=== PATIENT | male | born 1955 | race Caucasian/White ===

== ENCOUNTER 2020-06-12 21:29 | Inpatient (IN) | payer OTHER ==
[~2020-06-12] VITALS: Ht 185.4 cm; Wt 103.5 kg
[2020-06-12 21:30] VITALS: BP 185/108
[2020-06-12 22:12] LABS: ABSOLUTE NEUTROPHILS 4.8 thou/uL (1.4-8.2); BASOPHILS 0.4 % (0.0-2.0); EOSINOPHILS 3.8 % (0.0-3.0); HEMATOCRIT 40.1 % (42.0-52.0); HEMOGLOBIN 13.9 gm/dL (14.0-18.0); LYMPHOCYTES 29.9 % (24.0-44.0); MCH 31.1 pg (26.0-34.0); MCHC 34.6 g/dL (28.0-37.0); MCV 89.7 fL (80.0-100.0); MONOCYTES 6.2 % (1.0-8.0); PLATELET COUNT 191 thou/uL (150-400); POLYS 59.7 % (36.0-66.0); RBC 4.47 mil/uL (4.50-6.00); RDW 14.6 % (10.5-14.5)
[2020-06-12 22:27] LABS: CALCIUM 8.6 mg/dL (8.5-10.1); CREATININE 1.5 mg/dL (0.7-1.3); MAGNESIUM 1.9 mg/dL (1.8-2.4)
[2020-06-12 22:32] LABS: POTASSIUM 2.8 mmol/L (3.5-5.1)
[2020-06-12 23:08] LABS: AMP/METHAMP Negative (Negative); BARBITURATES Negative (Negative); BENZODIAZEPINES Negative (Negative); COCAINE Negative (Negative); METHADONE Negative (Negative); OPIATES POSITIVE (Negative); PCP Negative (Negative)
--- NOTE | 2020-06-13 00:52 | NUR ---
PHYSICIAN LEFT BEDSIDE. THE PATIENT STATES THAT HE, IN FACT, WAS TRYING TO HARM HIMSELF AND TOOK 6 PERCOCET AND AN UNKNOWN AMOUNT OF LORAZEPAM "BECAUSE HE WAS HAVING A BAD DAY"
--- NOTE | 2020-06-13 00:53 | NUR ---
HAND LACER NOTIFIED OF NEED FOR 1:1.
[2020-06-13] MEDS ORDERED: OXYCODONE IR PO (04:14)
[2020-06-13] MEDS ORDERED: LIPITOR10 MG PO (04:14)
[2020-06-13] MEDS ORDERED: LEVO-T50 MCG PO ×2 (04:15)
[2020-06-13] MEDS ORDERED: LISINOPRIL2.5 MG PO (04:16)
[2020-06-13] MEDS ORDERED: TRADJENTA5 MG (04:16)
[2020-06-13] MEDS ORDERED: MELOXICAM15 MG PO (04:19)
[2020-06-13] MEDS ORDERED: SPIRIVA INH (04:19)
[2020-06-13] MEDS ORDERED: BRINTELLIX5 MG PO (04:19)
[2020-06-13] MEDS ORDERED: ADULT ASPIRIN R81 MG PO (04:19)
[2020-06-13 04:23] LABS: CALCIUM 8.5 mg/dL (8.5-10.1); CREATININE 1.3 mg/dL (0.7-1.3); POTASSIUM 3.1 mmol/L (3.5-5.1)
--- NOTE | 2020-06-13 04:47 | NUR ---
[facility] CONTACTED FOR ASSESSMENT ON PATIENT. SPOKE WITH ELIZA IVEY AND THEY WILL BE DOWN SHORTLY TO ASSESS PATIENT FOR APPROPRIATE ADMISSION CRITERIA.
--- NOTE | 2020-06-13 05:17 | NUR ---
[facility] NURSE STATES AFTER ASSESSMENT THAT PATIENT SHOULD QUALIFY TO BE ADMITTED TO THEIR UNIT. ELIZA IVEY TO NOTIFY PHYSICIAN SECTION MAINTAINER FOR OFFICIAL ORDER AND PATIENT TO ADMIT WELL WAITING ON COVID SWAB RESULTS
[2020-06-13 11:16] VITALS: BP 154/106
[2020-06-13 12:33] VITALS: BP 168/84
--- NOTE | 2020-06-13 16:29 | NUR ---
1600 NEW ADMIT FROM ER FOR OVERDOSE ON OXYCODONE AND LORAZAPAN UNKNOWN AMOUNT OF PILLS. PATIENT STILL SEDATED FROM OVERDOSE, PATIENT STATED TO ME THAT HE HAS HAD A BAD LIFE. PATIENT HAS HISTORY OF PAST SUICIDE ATTEMPT IN PAST, WE DID NOT HAVE PERSON FULL MEDICAL RECORDS UPON ADMISSION. PATIENT HAS HISTORY OF HYPERTENSION AND DIABETES AND HX OF ETOH USE. PATIENT STATES HE IS SOMETIMES FEELS HOPELESS AND DEPRESSED. PATIENT DID GET UP TO EAT LUNCH AND DINNER. I ALLOWED PATIENT TO GO TO ROOM TO SLEEP DUE TO SEDATION, PATIENT DENIES HI/SI/AH/VH AT PRESENT. PATIENT STATES HE WANTED TO HAVE HIS MIND SOMEWHERE ELSE THAT IS WHY HE TOOK THE PILLS. PATIENT HAS NO SUPPORT SYSTEM AND DOES NOT KNOW HOW TO DEAL WITH STRESS. PATIENTS ABDOMEN ROUND BOWEL SOUNDS PRESENT; LUNGS CLEAR. PATIENT IS A LOW FALL RISK DUE TO OVERDOSE PATIENT IS AMBULATORY BUT DUE TO SEDATION I USED THE WC. PATIENT HAD A CALLOUS ON LEFT BIG TOE AND SCRAPE ON 2ND TOE. WOUND CARE DR CAME AND CUT THE CALLOUS DOWN AND WILL PUT ORDERS IN ON HOW TO TAKE CARE OF CALLOUS. PATIENT IS ORIENTED TO PLACE AND SELF COULD NOT REMEMBER MONTH OR YEAR. PATIENT IS COOPERATIVE CALM WILL CONTINUE TO MONITOR PATIENT FOR SAFETY AND BEHAVIORS.
[2020-06-13 20:26] VITALS: BP 141/90
--- NOTE | 2020-06-14 05:44 | NUR ---
06-13-20 CARE TRANSFERED 1914 OBSERVED SITTING IN DAY ROOM. 1944 PT AAOX3, VSS, RR EVEN AND NONLABORED ON RA. PT PRESENTS DROWSY AND CONFUSION. PT REPORTS HE HAS HAD A DIFFICULT LIFE, PT REPORTS PAIN IN RIGHT KNEE AT 6 ON 0-10 SCALE. PT DENIES SI/HI AT THIS TIME, BUT REPORTS THIS WAS THE SECOND TIME HE HAS ATTEMPTED SUICIDE. DURING MEDICATION ADMIN PT HAD NO DIFFICULTIES. ZERO S/S OF ACUTE EMOTIONAL OR MEDICAL DISTRESS, WILL CONTINUE TO MONITOR PER [facility] PROTOCOL.
[2020-06-14 06:24] LABS: HEMATOCRIT 41.5 % (42.0-52.0); HEMOGLOBIN 14.1 gm/dL (14.0-18.0); MCH 30.8 pg (26.0-34.0); MCHC 33.9 g/dL (28.0-37.0); MCV 90.8 fL (80.0-100.0); RBC 4.57 mil/uL (4.50-6.00); RDW 14.8 % (10.5-14.5); WBC 8.5 thou/uL (4.0-11.0)
[2020-06-14 06:46] LABS: CALCIUM 8.7 mg/dL (8.5-10.1); CREATININE 1.2 mg/dL (0.7-1.3); MAGNESIUM 2.1 mg/dL (1.8-2.4)
[2020-06-14 06:58] LABS: POTASSIUM 2.9 mmol/L (3.5-5.1)
[2020-06-14 07:45] LABS: TSH 6.743 uIU/mL (0.358-3.740)
[2020-06-14 10:44] VITALS: BP 188/96
--- NOTE | 2020-06-14 12:09 | NUR ---
1200 RESUMMED CARE FROM OVERNIGHT SHIFT THIS AM, PATIENT IN ROOM I EXCHANGED WC FOR A WALKER. PATIENT FELT HE NEEDED TO START WALKING AROUND, PATIENT LESS SEDATED THIS AM. PATIENTS ABOMEN SOFT ROUND BOWEL SOUNDS PRESENT LUNGS CLEAR. PATIENT CALLOUS ON LEFT BIG TOE LOOKING BETTER, PATIENT DENIES SI/HI/AH/VH AT PRESENT. PATIENT TOLD ME HE SMOKES 2 PACKS OF CIGARETTES A DAY, A NICOTINE PATCH OREDERED FOR PATIENT. PATIENT HAD A POTASSIUM OF 2.[address] ROSADO AND HE ORDERED 40 MCG OF POTASSIUM FOR PATIENT. WILL CONTINUE TO MONITOR PATIENT FOR BEHAVIORS AND SAFETY.
--- NOTE | 2020-06-14 15:12 | NUR ---
MARLEN and Dr. Alvarez met with patient to complete assessment. Patient's brother Jeramie was called and provided some hx. Patient's mother in January. He was her primary caregiver. Recently a tree that had been in their yard for 35 yrs was cut down. Patient wrote a letter about his feelings about the tree being gone. Jeramie reports pt took the tree being removed really hard. Patient was found unresponsive in his car. He reports he does not remember what happened. The medical record reflects patient took Oxycodone and Lorazapem in an attempt to "harm himself" due to suicidal ideation. Patient denies hx of suicide attempt. The medical reflects he has attempted in the past. Dr. Alvarez discussed safety planning with Jeramie in terms of getting weapons and/or stock piled medications out of the home.
[2020-06-14 20:37] VITALS: BP 164/94
[2020-06-14 23:22] VITALS: BP 164/94
--- NOTE | 2020-06-15 02:40 | NUR ---
Assumed care of patient this pm shift. Patient sitting in the mileu during assessment. Patients affect is flat. Patient states that he has pain in his back and knees. Patient given 2 tylenol for pain. Patient denies hi/si. Patient is not a falls risk and ambulates without assistance. Patient is continent of bowel and bladder. Patient is medication adherent and takes medications whole with thin fluids. Patients assessment shows no signs of acute distress. Patient is alert and oriented x4. Patient is calm and cooperative and does not display any negative behaviors. We will continue to monitor per hospital policy.
[2020-06-15 07:32] VITALS: BP 166/106
--- NOTE | 2020-06-15 08:10 | EKG ---
[facility] [place] [address] ELECTROCARDIOGRAM REPORT Name: WINDY ANDERSON Room #: 522B-B ADM IN M.R.#: [id number] Admission: 06/13/20 Attend Phys: Bravo Alvarez DO Discharge: Date of : 59 Report #: [id number] THIS REPORT FOR: cc: ABEBA - No family physician/PCP FAM - No family physician/PCP Michael Berman MD [facility] ~ THIS REPORT FOR: //name// [facility] ED Test Date: 2020-06-12 Test Time: 21:36:49 Pat Name: WINDY ANDERSON Department: Room: 522B Gender: M Social Studies Teacher: ROSA : 1955 Requested By: Victoriano Jensen Order Number: [id number] MD: Michael Berman Measurements Intervals [place] Rate: 97 P: -6 SD: 126 QRS: -52 QRSD: 124 T: 68 QT: 412 QTc: 524 Interpretive Statements Sinus tachycardia Multiple ventricular premature complexes IVCD, consider atypical RBBB Inferolateral infarct, old Baseline wander in lead(s) V2 No previous ECG available for comparison Electronically Signed On 06-15-2020 8:10:00 CDT by Michael Berman [email or web address] <ELECTRONICALLY SIGNED> By: Michael Berman MD, FAC 06/15/20 0810 35 35 Michael Berman MD, FAC /EPI
--- NOTE | 2020-06-15 08:25 | NUR ---
PT SITTING AT A TABLE EATING BREAKFAST. PT STATED HE IS DOING BETTER AND IS READY TO GO HOME. PT STATED HE HAS A POSITIVE ATTITUDE. PT UP WITH WALKER. PT STATED PAIN TO RT KNEE, LOWER BACK AND NECK IS A 6. PT REFUSED ANY MEDICATION FOR PAIN CONTROL AT THIS TIME. PT LUNGS CLEAR, POSITIVE BOWEL SOUNDS.
[2020-06-15 08:30] VITALS: BP 166/106
--- NOTE | 2020-06-15 11:35 | NUR ---
MARLEN and Dr. Alvarez contacted pt's brother Cam Verde at [phone]. Cam read to and MARLEN the alleged suicidal note pt left. There was no mention of in the letter; it was purely about the tree. Cam said that pt was discovered by the [employer] shop employee who was gonna ask pt to roll his window up. They found pt passed out in his car. Cam explained that pt has not drank alcohol in years; it was coincidental that he was in the vicinity of a bar. In Cam's opinion pt was not attempting suicide. He simply took too much of his medicine. Dr. Alvarez talked to Cam about pt needing to stay with one of his brothers after d/c. Cam said that he will be out of town for 2 months. He gave Jeramie's number of [phone]. In order for pt to d/c tomorrow, he will need to have a safe place to stay. He would like pt to stay with family for the rest of the week. MARLEN team will continue to follow pt during his stay on this unit.
--- NOTE | 2020-06-15 16:23 | NUR ---
PT LAYING IN BED. CLEANED CALLOUS TO LEFT FOOT ON PLANTER SIDE. CLEANED BETADINE SWABS AND APPLIED MEPILEX BOARDER DRESSING. PT STATED HE IS GOING HOME TOMMORROW.
[2020-06-15 19:55] VITALS: BP 179/112
[2020-06-16 05:58] LABS: HEMATOCRIT 40.3 % (42.0-52.0); MCH 31.4 pg (26.0-34.0); MCHC 34.8 g/dL (28.0-37.0); MCV 90.1 fL (80.0-100.0); RBC 4.48 mil/uL (4.50-6.00); RDW 14.5 % (10.5-14.5); WBC 7.6 thou/uL (4.0-11.0)
[2020-06-16 06:29] LABS: CALCIUM 8.7 mg/dL (8.5-10.1); MAGNESIUM 2.1 mg/dL (1.8-2.4); POTASSIUM 3.1 mmol/L (3.5-5.1)
[2020-06-16 07:54] VITALS: BP 163/102
--- NOTE | 2020-06-16 08:32 | NUR ---
PT SITTING OUT IN DINING ROOM. PT UP WITH WALKER. PT STATED HE HAS PAIN TO NECK AND LOWER BACK OF 6 ON 1-10 SCALE. PT REFUSED ANY TYLENOL. PT STATED HE IS GOING HOME TODAY. PT TOOK MEDS WITHOUT ANY ISSUES. PT HAS DRESSING TO LEFT FOOT THAT IS INTACT. PT HAS SORE ON TOP OF LEFT SECOND TOE. NO DRAINAGE NOTED.
[2020-06-16 09:00] VITALS: BP 163/102
[2020-06-16] MEDS ORDERED: LISINOPRIL40 MG PO (12:46)
[2020-06-16] MEDS ORDERED: TRADJENTA5 MG PO (12:47)
[2020-06-16] MEDS ORDERED: SYNTHROID175 MCG PO (12:48)
[2020-06-16] MEDS ORDERED: GENTAMICIN SULF15 GM TOP (12:49)
--- NOTE | 2020-06-16 14:23 | NUR ---
MARLEN contacted [facility] several times in an attempt to schedule and intake appointment for out Pt services. MARLEN was unable to get an appointment informed Pt's case briefer would need to make a referral for the Pt to get an appointment for outpt services. MARLEN then reached out to Susie Gutierrez case briefer [phone], and left a message for a call back. @ 13:27 MARLEN recieved a phone [facility], case briefer supervisor real estate office. Yanira stated a referral would be made for the Pt to begin therapy. Yanira also stated that the Pt's case manger will contact the Pt this week concerning services. Yanira also left a phone number for Susie [phone] for Pt to contact.
--- NOTE | 2020-06-16 14:31 | NUR ---
CHANGED DRESSING TO LEFT FOOT, APPLIED GENTAMYCIN CREAM TO LEFT PLANTER AND TOP OF LEFT SECOND TOE.
--- NOTE | 2020-06-16 15:01 | NUR ---
@1130 SW and Pt contacted [facility] to schedule a PCP appointment for 06/18/2020 @1020. Pt also has and appointment 06/17/[address] Toure for pain mangement. SW provided Pt with a SW discharge summary that included appointment information.
--- NOTE | 2020-06-16 15:34 | NUR ---
PT GETTING READY TO DISCHARGED. ADM KDUR 40MEQ X1 PO PER ORDER. GAVE PT GRAMHN CRACKERS WITH MED. PT VERBALY UNDERSTOOD D/C ORDERS.
--- NOTE | 2020-06-16 15:50 | NUR ---
TRANSPORTED PT VIA W/C TO SECURITY TO GET BELONGINGS, PT HAS HIS CANE.
--- NOTE | 2020-06-16 23:43 | H ---
[facility] [address] [place] [address] HISTORY AND PHYSICAL Name: WINDY ANDERSON Room #: 522B-B DIS IN M.R.#: [id number] Admission: 06/13/20 Attend Phys: Bravo Alvarez DO Discharge: 06/16/20 Date of : 59 Report #: [id number] THIS REPORT FOR: cc: ABEBA - No family physician/PCP FAM - No family physician/PCP Bravo Alvarez DO ~ CC: Bravo US physician/PCP DATE OF SERVICE: 06/13/2020 INPATIENT PSYCHIATRIC EVALUATION ATTENDING PHYSICIAN: Bravo Alvarez DO. QUALITY CONTROL TESTER: Zackery Thomas MD REASON FOR ADMISSION: He was referred from the Emergency Room from [place], reportedly brought in by emergency medical services for concern of being found in an automobile 2 doors down from the [facility]ounge on form setter/driver seat of the car. The car was not running, it was down. The patient was lethargic, confused, difficulty answering questions. HISTORY OF PRESENT ILLNESS: A 65-year-old male brought in by EMS for suspected overdose. It is unclear for sure if it was intentional, but it is leaning that way and we need to assume at present this was a suicide attempt until proven otherwise. He describes his condition as "trouble with his feet," complains of generalized weakness. He denied fever, recent drug or alcohol use. He was falling asleep intermittently, so they were unable to get questions in the ER, he had similar problems with sedation on the unit. HOME MEDICATIONS: Noted as tiotropium bromide 1 cap inhaled daily, meloxicam 15 mg p.o. daily, vortioxetine 5 mg p.o. daily, aspirin 81 mg p.o. daily, linagliptin which is Tradjenta 5 mg p.o. daily, lisinopril 10 mg p.o. daily; levothyroxine 50 mcg at bedtime, 150 in the morning, I ordered 50 in the morning, he better verify; atorvastatin 10 mg p.o. at bedtime and oxycodone IR 1 tab p.o. q. 6-8 hours p.r.n. SOCIAL HISTORY: Unknown tobacco, alcohol or recreational drug use. I was not able to get a reasonable interview on the patient. REVIEW OF SYSTEMS: From the ER today: CONSTITUTIONAL: Denies fever, chills, malaise, unexplained weight change. EYES: Denies eye pain, visual change or discharge. HENT: Denies hearing changes, ear drainage, ear infections, ear pain, neck pain or stiffness. [address] [address] HISTORY AND PHYSICAL Name: WINDY ANDERSON Room #: 522B-B DIS IN M.R.#: [id number] Admission: 06/13/20 Attend Phys: Bravo Alvarez DO Discharge: 06/16/20 Date of : 59 Report #: [id number] RESPIRATORY: Denies cough, shortness of breath, hemoptysis or respiratory distress. CARDIOVASCULAR: Denies chest pain, chest pain with exertion or edema. GASTROINTESTINAL: Denies abdominal pain, nausea, vomiting or diarrhea. GENITOURINARY: Denies burning, frequency or dysuria. MUSCULOSKELETAL: Denies back pain, joint pain or myalgias. SKIN: Denies rash. NEUROLOGIC: Denies weakness, headache or loss of consciousness. Otherwise, 10-point review of systems was negative. Weight was 115.67 kilos, BMI 30.1, he is 61 inches tall. EKG was done, which showed the following: QTC 524, so the prolonged VT interval 126, ventricular rate 97, sinus tachycardia, very slightly. No STEMI. PHYSICAL EXAMINATION: VITAL SIGNS: Today on the unit, temperature 97.9, pulse 72, respirations 18, BP 168/84, O2 sat 98%. ADDITIONAL INFORMATION: The patient first said he lived with his mother, then his mother was . Regarding contacts for him, we have a Anders Anderson, which is his brother, who we will give a call too shortly to get some more information. The patient remains voluntary. He was not oriented to day of the week or month, though he is willing to be here. Physical exam, in wheelchair, slumped over a bit, required some mouth feeding. MENTAL STATUS EXAM: Attention limited. Concentration impaired. Speech slow, soft, occasionally slurred. Thought process is linear, very limited thought content, poverty of thought. Does admit when I asked him when he was lying in bed that this is probably an intentional oxycodone overdose. He is ambivalent as to whether he is currently suicidal. Denied homicidality. Denied auditory, visual, or tactile hallucinations. I did not question him about nightmares or flashbacks, but when he is more relieved, I will. Mood and affect restricted and dysphoric. Insight, judgment impaired. Memory not formally tested. Fund of knowledge in average range. FORMULATION: A 65-year-old male brought in by first front ventilator for suspected intentional overdose. DIAGNOSIS: At this time, unspecified depressive disorder. Medical conditions include hypertension, diabetes mellitus. He has a diabetic foot wound. [facility] [address] [place] [address] HISTORY AND PHYSICAL Name: WINDY ANDERSON Room #: 522B-B [facility] IN .R.#: [id number] Admission: 06/13/20 Attend Phys: Bravo Alvarez DO Discharge: 06/16/20 Date of : 59 Report #: [id number] Consult wound care, consult hospitalist. Regarding medications, we will put him on lisinopril 10 mg p.o. daily, aspirin 81 mg p.o. daily, ipratropium bromide 0.5 mg InH daily, levothyroxine 50 mcg daily for now, atorvastatin 10 mg p.o. at bedtime, 16 units of Humalog with meals, we will put him on a.c. and at bedtime Accu-Cheks. Otherwise house PRNs. ALLERGIES: No known allergies. Time spent on interview, review of records, coordination of care is at least 60 minutes, greater than 50% of this time spent on review of records and coordination of care. <ELECTRONICALLY SIGNED> By: Bravo Alvarez DO 06/16/20 2343 1536 1700 Bravo Alvarez DO /nt
--- NOTE | 2020-06-17 23:26 | D ---
[facility] [place] [address] [address] [place] [address] DISCHARGE SUMMARY Name: WINDY ANDERSON Room #: 522B-B [facility] IN M.R.#: [id number] Admission: 06/13/20 Attend Phys: Bravo Alvarez DO Discharge: 06/16/20 Date of : 59 Report #: [id number] THIS REPORT FOR: cc: ABEBA Suero family physician/PCP ABEBA - No family physician/PCP Bravo Alvarez DO ~ THIS REPORT FOR: //name// CC: Bravo Alvarez [facility] physician/PCP DATE OF SERVICE: 06/16/2020 INPATIENT PSYCHIATRIC DISCHARGE SUMMARY ATTENDING PHYSICIAN: Bravo Alvarez DO ASSISTANT PROJECT ENGINEER: Zackery Thomas MD DISCHARGE DIAGNOSES: Major depressive disorder, unspecified degree; adjustment disorder with disturbance of emotions and conduct, resolved; opiate dependence; chronic pain disorder; diabetes mellitus type 2, uncontrolled with a hemoglobin A1c of 10; hypertension. DISCHARGE PLAN: He will be discharging to his brother Jeramie's home, picked up by brother Anders. He has a PCP in the [facility] [place], appointments have been made for that. Counseling has been organized at [facility] for him. DISCHARGE DIET: 1800-calorie diabetic diet. ACTIVITY: Encouraged the patient utilizes a walker. DISCHARGE MEDICATIONS: Atorvastatin 10 mg at bedtime, lisinopril 40 mg p.o. daily for hypertension, aspirin 81 mg p.o. daily, Tradjenta 5 mg p.o. daily. Will be started on insulin here, I think that is going to be a stretch to get him to comply with. He really needs to control his intake of calories, glycemic index of foods and so forth. PCP appointment will be his first checkup. I would encourage home glucometer monitoring. He is getting wound care to gentamicin sulfate applied to diabetic ulcer of left first great toe. REASON FOR ADMISSION: This past Monday, the patient was found minimally responsive in his car near ____ [facility], brought in by EMS. Narcan was given. UDS was only positive for opiates. He was taking oxycodone at home, is under pain management with Dr. Toure. [facility] [address] [address] DISCHARGE SUMMARY Name: WINDY ANDERSON Room #: 522B-B [facility] IN ..#: [id number] Admission: 06/13/20 Attend Phys: Bravo Alvarez, Discharge: 06/16/20 Date of : 59 Report #: [id number] HOSPITAL COURSE: The patient was fairly out of it Monday and some on Monday. When the patient was with it yesterday, they were able to talk to both his brothers, Anders and Jeramie. They described besides his mother passing away in January, he had a tree removed that was sentimental to the family. It is not clear exactly how many oxycodone were taken and his brother, Anders has assured me that there are no weapons, no pill stockpiles, narcotics remaining in the house. Here on the unit, the patient has not appeared in pain crisis. Risk factors for suicidality were reviewed with the patient and his brothers and given the fact the patient is a single white male who has chronic pain, does put him in the above average risk. I would like the patient to get a suicide hotline number, will be provided, crisis hotline number. Weight 103.476 kg, height 185.42 cm, BMI 30.1. PHYSICAL EXAMINATION: VITAL SIGNS: Today, temperature 36.7, pulse wnl , respirations 15, BP 163/102, O2 sat 98%. MUSCULOSKELETAL: Ambulates with walker. Normal station but unkempt. MENTAL STATUS EXAMINATION: This is a well-developed, somewhat unkempt appearing male, appearing his stated age. Attention fair. Concentration fair. Speech is normal in rate, volume and tone. Thought process: Linear and goal directed. Thought content focused on discharge. No psychomotor agitation. No psychomotor retardation. Denied SI or HI. Denied hopelessness, helplessness. Denied auditory, visual, or tactile hallucinations. Memory not formally tested. Insight fair. Judgment fair to limited. Fund of knowledge average range. His sleep hours last night was an 8-hour sleep. PROGNOSIS: Guarded and will depend him being medication and treatment compliant, engaging in psychotherapy and reaching out when he needs help. <ELECTRONICALLY SIGNED> By: Bravo Alvarez DO 06/17/20 2326 1245 1333 Bravo Alvarez DO /nt
== END 2020-06-16 15:55 | disposition home or self-care (01) | DRG 881 ==
LOC: ER 21:29 → EROBS 06-13 11:15 → SBH 06-13 11:15
PROVIDERS: Emergency Medicine; Internal Medicine; ADMIT Psychiatry & Neurology Psychiatry; ATTEND Psychiatry & Neurology Psychiatry
PROC: 0HDNXZZ Extraction of Left Foot Skin, External Approach (ICD-10-PCS; principal; 2020-06-13)
DX: F32.9 Major depressive disorder, single episode, unspecified (principal); F11.20 Opioid dependence, uncomplicated; T40.602A Poisoning by unspecified narcotics, intentional self-harm, initial encounter; E87.6 Hypokalemia; E03.9 Hypothyroidism, unspecified; F43.21 Adjustment disorder with depressed mood; E87.5 Hyperkalemia; E11.621 Type 2 diabetes mellitus with foot ulcer; L97.529 Non-pressure chronic ulcer of other part of left foot with unspecified severity; E11.65 Type 2 diabetes mellitus with hyperglycemia; G89.29 Other chronic pain; L84 Corns and callosities; I10 Essential (primary) hypertension; F17.210 Nicotine dependence, cigarettes, uncomplicated; Z79.899 Other long term (current) drug therapy; Z79.82 Long term (current) use of aspirin; Z03.818 Encounter for observation for suspected exposure to other biological agents ruled out; Y92.89 Other specified places as the place of occurrence of the external cause
CPT/HCPCS: 10880